=== PATIENT | male | born 1960 | race Two or more races ===

== ENCOUNTER 2018-01-18 18:33 | Emergency (ER) | payer SELFPAY ==
[~2018-01-18] VITALS: Ht 170.2 cm; Wt 81.6 kg
[2018-01-18 19:18] VITALS: BP 132/84
[2018-01-18 21:00] VITALS: BP 124/76
--- NOTE | 2018-01-18 22:31 | Emergency Room Report ---
History of Present Illness General Chief Complaint: Back Pain-No Injury Source: Patient Present Illness HPI 57-year-old male presents to the emergency department complaining of exacerbation of his chronic low back pain 2 days. Patient reports that when it is cold out this makes his pain exacerbated. Patient states that he typically uses a cane ambulate. Patient states that he's been drinking earlier today and thinks that this may have also treated to his symptoms. Patient states that earlier he felt slightly dizzy however he states that he no longer feels that way he denies headache, weakness, loss of consciousness, trauma or fall. Patient denies abdominal pain or tenderness. He denies neck pain. Denies numbness tingling or loss of sensation or gross motor movements of the extremities, incontinence of bowel or bladder. Denies CP, Palpitations, LOC, AMS , dizziness, Changes in Vision, weakness or a sudden severe headache. Pt. states he previously was rx'd Vicodin to manage his pain but he became addicted and needed to stop. pt. denies taking any medications today for his symptoms. Pt. is also reporting that he has not slept in 3 days and has been standing the whole time which cause his symptoms to become worse. Pt. states he is transitioning between housing at the moment. Allergies: Coded Allergies: No Known Allergies (Unverified , 01/18/18) Patient History Past Medical History: see triage record Past Surgical History: none Pertinent Family History: none Social History: Reports: alcohol use - beer and liquor. , drug use - opiate dependence and tolerance- in remission per pt. Reviewed Nursing Documentation: PMH: Agreed; PSxH: Agreed Nursing Documentation-PMH Past Medical History: No Stated History Review of Systems All Other Systems: negative except mentioned in HPI Physical Exam Vital Signs Date Time Temp Pulse Resp B/P (MAP) Pulse Ox O2 Delivery O2 Flow Rate FiO2 01/18/18 19:18 97.0 62 18 127/78 94 Room Air Sp02 EP Interpretation: reviewed, normal General Appearance: no apparent distress, alert, GCS 15, non-toxic Head: normocephalic, atraumatic Eyes: bilateral eye normal inspection, bilateral eye PERRL ENT: hearing grossly normal, normal voice Neck: full range of motion Respiratory: lungs clear, normal breath sounds, no respiratory distress, no wheezing, speaking full sentences Cardiovascular #1: regular rate, rhythm, no edema, normal capillary refill Cardiovascular #2: 2+ dorsalis pedis (R) - posterior tibialias bilaterally, 2+ dorsalis pedis (L) Gastrointestinal: normal bowel sounds, non tender, soft, non-distended, no guarding, no pulsatile mass Musculoskeletal: back normal, gait/station normal, normal range of motion, tender - TTP generalized throughout back paraspinal musculature and midline, no palpable step-offs, no obivous deformity. pt. ambulatory with a cane. Neurologic: alert, oriented x3, responsive, motor strength/tone normal, sensory intact, normal gait - with gait. , speech normal, other - Inebriated- strong odor of etoh on pt. breath durring PE. , grossly normal Psychiatric: judgement/insight normal Skin: normal color, no rash, warm/dry, well hydrated, other - no open wounds or abrasions. Medical Decision Making PA Attestation Dr. Sharma is my supervising physician whom pt. management has been discussed with. Diagnostic Impression: Primary Impression: Back pain Qualified Codes: M54.5 - Low back pain; G89.29 - Other chronic pain ER Course 57-year-old male presents to the emergency department complaining of exacerbation of his chronic low back pain 2 days. Patient reports that when it is cold out this makes his pain exacerbated. Patient states that he typically uses a cane ambulate. Patient states that he's been drinking earlier today and thinks that this may have also treated to his symptoms. Patient states that earlier he felt slightly dizzy however he states that he no longer feels that way he denies headache, weakness, loss of consciousness, trauma or fall. Patient denies abdominal pain or tenderness. He denies neck pain. Denies numbness tingling or loss of sensation or gross motor movements of the extremities, incontinence of bowel or bladder. Denies CP, Palpitations, LOC, AMS , dizziness, Changes in Vision, weakness or a sudden severe headache. Pt. states he previously was rx'd Vicodin to manage his pain but he became addicted and needed to stop. pt. denies taking any medications today for his symptoms. Pt. is also reporting that he has not slept in 3 days and has been standing the whole time which cause his symptoms to become worse. Pt. states he is transitioning between housing at the moment. Ddx considered: epidural abscess, fracture, sprain/strain, meningitis, spinal chord injury, sciatica, cauda equina, Pyelonephritis, renal calculi just to name a few. Vital signs reviewed and are WNL during ED visit. Pt. is afebrile with no signs of infection No new symptoms, and denies recent trauma. No saddle anesthesia noted, Pt. denies incontinence Neurovascular is intact ROM is limited due to pain pulses are equal bilaterally normal temperature palpation bilaterally. Mild Tenderness to palpation to paraspinal muscles of the lower back, upper back and some midline tenderness. *Pt. describes pain today as moderate and radiates across the lower back. ORDERS: Pt. declines imaging. He reports chronic pain. INTERVENTIONS: - patient declines pain medication he also declines Lidoderm patch. Patient repeatedly asks for a warm blanket and to lay on a gurney so he can rest. Will double times patient was caught in the bathroom smoking cigarettes and he was kindly asked to stop and refrain from smoking in the emergency department as there is oxygen nearby and this causes a significant risk to the department. Patient ultimately requests to leave because he does not have a bed. He attempted to walk out but he was encouraged to stay until clinically he is more sober. Pt. continues to want to leave and repeatedly smokes in the bathroom. He is refusing pain medication and evaluation still . DISCHARGE: At this time pt. is stable for d/c to home. Will provide printed patient care instructions, and any necessary prescriptions. Care plan and follow up instructions have been discussed with the patient prior to discharge. Last Vital Signs Date Time Temp Pulse Resp B/P (MAP) Pulse Ox O2 Delivery O2 Flow Rate FiO2 01/18/18 19:18 97.0 62 18 127/78 94 Room Air Disposition: HOME, SELF-CARE Condition: Stable Scripts No Active Prescriptions or Reported Meds Patient Instructions: Back Pain, Adult Humera Roa Jan 18, 2018 22:30
== END 2018-01-18 21:00 | disposition home or self-care (01) ==
LOC: EDBD 18:33 → EMR 19:42
DX: M54.5 Low back pain (principal); G89.29 Other chronic pain
CPT/HCPCS: 99283

== ENCOUNTER 2018-03-22 12:05 | Inpatient (IN) | payer MEDICAID ==
[~2018-03-22] VITALS: Ht 172.7 cm; Wt 78.5 kg
[~2018-03-22 12:05] MED LIST: NKM
[2018-03-22 12:12] VITALS: BP 97/51
[2018-03-22 13:07] LABS: BASOPHILS % (AUTO) 1.3 % (0.0-2.0); EOSINOPHILS % (AUTO) 4.1 % (0.0-3.0); HEMATOCRIT 37.3 % (42.0-52.0); HEMOGLOBIN 11.5 G/DL (14.2-18.0); LYMPHOCYTES % (AUTO) 45.3 % (20.0-45.0); MEAN CORPUSCULAR VOLUME 86 FL (80-99); MONOCYTES % (AUTO) 6.6 % (1.0-10.0); NEUTROPHILS % (AUTO) 42.7 % (45.0-75.0); PLATELET COUNT 377 K/UL (150-450); RED BLOOD COUNT 4.31 M/UL (4.70-6.10); WHITE BLOOD COUNT 6.2 K/UL (4.8-10.8)
[2018-03-22 13:14] LABS: ANION GAP 11 mmol/L (5-15); BLOOD UREA NITROGEN 6 mg/dL (7-18); CALCIUM 8.7 MG/DL (8.5-10.1); CARBON DIOXIDE 23 MMOL/L (21-32); CHLORIDE 110 MMOL/L (98-107); CREATININE 0.9 MG/DL (0.55-1.30); SODIUM 144 MMOL/L (136-145)
[2018-03-22 13:18] LABS: ALANINE AMINOTRANSFERASE 27 U/L (12-78); ALBUMIN 2.9 G/DL (3.4-5.0); ALBUMIN/GLOBULIN RATIO 0.5 (1.0-2.7); ALKALINE PHOSPHATASE 109 U/L (46-116); ASPARTATE AMINO TRANSFERASE 37 U/L (15-37); BILIRUBIN,TOTAL 0.2 MG/DL (0.2-1.0)
--- NOTE | 2018-03-22 13:26 | Emergency Room Report ---
History of Present Illness General Chief Complaint: Syncope Source: Patient Present Illness HPI 57-year-old male with no medical problems, but reports he drinks beer every day , is homeless, lives in [facility], report he passed out, he did report symptoms nonspecific vague chest pain, while eating here, otherwise has no complaints. He reports he was lightheaded for moment and passed out, does not feel like he hurt himself. Allergies: Coded Allergies: No Known Allergies (Unverified , 01/18/18) Patient History Past Medical History: see triage record Reviewed Nursing Documentation: PMH: Agreed; PSxH: Agreed Nursing Documentation-PMH Past Medical History: No History, Except For Hx Seizures: Yes Review of Systems All Other Systems: negative except mentioned in HPI Physical Exam Vital Signs Date Time Temp Pulse Resp B/P (MAP) Pulse Ox O2 Delivery O2 Flow Rate FiO2 03/22/18 11:58 98.4 86 16 103/71 98 Room Air 03/22/18 12:11 99 Sp02 EP Interpretation: reviewed, normal General Appearance: no apparent distress, alert, non-toxic Head: normocephalic Eyes: bilateral eye normal inspection, bilateral eye PERRL, bilateral eye EOMI ENT: normal ENT inspection, hearing grossly normal, normal pharynx, no angioedema, normal voice, moist mucus membranes Neck: normal inspection, full range of motion, supple, supple/symm/no masses Respiratory: chest non-tender, lungs clear, normal breath sounds, chest symmetrical, palpation of chest normal Cardiovascular #1: normal peripheral pulses, regular rate, rhythm Cardiovascular #2: 2+ radial (R), 2+ radial (L), 2+ dorsalis pedis (R), 2+ dorsalis pedis (L) Gastrointestinal: normal inspection, non tender, soft, no mass, no guarding, no rebound Rectal: deferred Genitourinary: normal inspection, no CVA tenderness Musculoskeletal: back normal, gait/station normal, normal range of motion, non- tender, no calf tenderness Neurologic: alert, responsive, battery assembler dry cell III-XII nml as tested, motor strength/tone normal, sensory intact, speech normal Psychiatric: judgement/insight normal, memory normal, mood/affect normal Skin: normal color, no rash, warm/dry, normal turgor Lymphatic: no adenopathy Medical Decision Making Homeless Attestation I, The treating physician Dr. Ragland, has assessed and agrees that patient is medically stable for discharge to an outpatient disposition. Diagnostic Impression: Primary Impression: Syncope ER Course Patient with no medical problems, has single episode, minimally prolonged QTC of 43, has been requesting sandwiches here the whole time, not having active chest pain, a 3 sandwiches requesting to be helped out with a place to go afterwards as he is homeless. Labs, EKG, CXR all normal. Pateint given 3 turkey sandwiches, warmed up per his request, will dc. EKG Diagnostic Results EKG Time: 13:23 EP Interpretation: no stemi Rate: normal Rhythm: NSR ST Segments: no acute changes ASA given to the pt in ED: No Chest X-Ray Diagnostic Results Chest X-Ray Diagnostic Results : Chest X-Ray Ordered: Yes # of Views/Limited/Complete: 1 View Indication: Other - syncope EP Interpretation: Yes Interpretation: no consolidation, no effusion, no pneumothorax, no acute cardiopulmonary disease Impression: No acute disease Electronically Signed by: Margot Ragland MD Last Vital Signs Date Time Temp Pulse Resp B/P (MAP) Pulse Ox O2 Delivery O2 Flow Rate FiO2 03/22/18 12:12 97.1 91 14 97/51 98 Room Air 03/22/18 12:11 99 Disposition: HOME, SELF-CARE Condition: Stable Referrals: NOT CHOSEN KRYSTAL/,REFERRING (PCP) MARGOT RAGLAND M.D Mar 22, 2018 13:26
[2018-03-22] MEDS ORDERED: Aspirin Baby 81mg ORAL ONE (13:45)
[2018-03-22] MEDS ORDERED: Nitroglycerin Subl 0.4mg tab SL PRN ×2 (13:45→14:15)
[2018-03-22 14:12] VITALS: BP 104/71
[2018-03-22] MEDS ORDERED: dilTIAZem HCl 25mg/5ml Inj IV PRN (14:15)
[2018-03-22] MEDS ORDERED: Enalaprilat 2.5mg/2ml Inj IV PRN (14:15)
[2018-03-22] MEDS ORDERED: Albuterol/Ipratropium 3ml neb HHN PRN (14:15)
[2018-03-22] MEDS ORDERED: Morphine Sulfate 4mg/ml Inj (IV/IM USE ONLY) IVP PRN (14:15)
[2018-03-22] MEDS ORDERED: Ketorolac 30mg Inj IV PRN (14:15)
[2018-03-22] MEDS ORDERED: Miralax 17gm pkt ORAL PRN (14:15)
[2018-03-22 16:21] VITALS: BP 115/75
--- NOTE | 2018-03-22 16:34 | Diagnostic Imaging Report ---
Indication: Shortness of breath Technique: One view of the chest Comparison: none Findings: The heart size is normal. There is a 1 cm irregular opacity at the left lung base. Lungs and pleural spaces are clear otherwise Impression: Irregular left basilar 1 cm opacity, quite possibly artifactual but small nodule also possible. Consider chest CT for further evaluation. Dr. Pantoja notified No acute process otherwise
[2018-03-22 17:20] VITALS: BP 131/85
[2018-03-22 17:45] VITALS: BP 123/77
[2018-03-22] MEDS ORDERED: Isovue-300 100ml vial INJ PRN (17:45)
[2018-03-22 20:00] VITALS: BP 135/85
[2018-03-22] MEDS: Heparin 5000 units/ml inj SUBQ SCH (21:00)
[2018-03-23] VITALS: BP 130/79
[2018-03-23 04:00] VITALS: BP 134/86
[2018-03-23 07:30] LABS: BASOPHILS % (AUTO) 1.4 % (0.0-2.0); EOSINOPHILS % (AUTO) 2.7 % (0.0-3.0); HEMATOCRIT 30.4 % (42.0-52.0); HEMOGLOBIN 9.6 G/DL (14.2-18.0); LYMPHOCYTES % (AUTO) 42.3 % (20.0-45.0); MEAN CORPUSCULAR VOLUME 84 FL (80-99); MONOCYTES % (AUTO) 5.7 % (1.0-10.0); NEUTROPHILS % (AUTO) 47.9 % (45.0-75.0); PLATELET COUNT 373 K/UL (150-450); RED CELL DISTRIBUTION WIDTH 20.5 % (11.6-14.8); WHITE BLOOD COUNT 9.8 K/UL (4.8-10.8)
[2018-03-23 07:50] LABS: INR 1.1 (0.9-1.1)
[2018-03-23 07:54] LABS: CHOLESTEROL 121 MG/DL (< 200); HDL CHOLESTEROL 35 MG/DL (40-60); TRIGLYCERIDES 66 MG/DL (30-150)
[2018-03-23 08:00] VITALS: BP 130/92
[2018-03-23] MEDS: Heparin 5000 units/ml inj SUBQ SCH (08:49)
[2018-03-23] MEDS ORDERED: Aspirin Baby 81mg ORAL SCH (09:00)
[2018-03-23] MEDS ORDERED: PROTONIX20 MG ORAL (11:28)
--- NOTE | 2018-03-23 11:43 | Consultation ---
History of Present Illness General Date patient seen: Mar 23, 2018 Chief Complaint: Syncope Present Illness HPI 57-year-old male with no medical problems, but reports he drinks beer every day , is homeless, report he passed out, he did report symptoms nonspecific vague chest pain, while eating here, otherwise has no complaints. He was going to be discharged but he started c/o chest pain. His CXR showed possible LLL nodule. He is admitted for further work up. Allergies: Coded Allergies: No Known Allergies (Unverified , 01/18/18) Medication History Scheduled No Known Medications* (NKM - No Known Medications*), 0 ., (Reported) Pantoprazole Sodium (Protonix), 20 MG ORAL DAILY Patient History Healthcare decision maker Resuscitation status Full Code Advanced Directive on File Past Medical/Surgical History Past Medical/Surgical History: (1) Homelessness Review of Systems All Other Systems: negative except mentioned in HPI Physical Exam General Appearance: WD/WN Lines, tubes and drains: peripheral HEENT: normocephalic, atraumatic Neck: non-tender, normal alignment Respiratory/Chest: chest wall non-tender, lungs clear Breasts: no masses Cardiovascular/Chest: normal peripheral pulses, normal rate Abdomen: normal bowel sounds, non tender Genitourinary/Rectal: normal genital exam Extremities: normal range of motion Skin Exam: normal pigmentation Neurologic: primary care provider II-XII grossly normal Last 24 Hour Vital Signs Date Time Temp Pulse Resp B/P (MAP) Pulse Ox O2 Delivery O2 Flow Rate FiO2 03/23/18 09:00 Room Air 03/23/18 08:00 99.5 90 16 130/92 (105) 97 03/23/18 04:00 98.4 89 18 134/86 (102) 99 03/23/18 04:00 91 03/23/18 00:00 106 03/23/18 00:00 99.6 107 18 130/79 (96) 97 03/22/18 21:00 Room Air 03/22/18 20:00 98.2 109 18 135/85 (102) 99 03/22/18 20:00 106 03/22/18 18:16 Room Air 03/22/18 17:45 98.4 95 23 123/77 (92) 98 03/22/18 17:20 97.5 98 20 131/85 99 Room Air 99 03/22/18 17:20 97.5 98 20 131/85 99 Room Air 03/22/18 16:21 97.7 101 18 115/75 100 Room Air 03/22/18 14:12 97.7 74 18 104/71 99 Room Air 03/22/18 12:12 97.1 91 14 97/51 98 Room Air 03/22/18 12:11 82 14 Room Air 99 03/22/18 11:58 98.4 86 16 103/71 98 Room Air Intake and Output 03/22/18 03/23/18 19:00 07:00 Intake Total 500 ml Output Total 0 ml 200 ml Balance 500 ml -200 ml Intake Oral 500 ml Output Urine Total 0 ml 200 ml # Voids 2 # Bowel Movements 2 Laboratory Tests Test 03/22/18 12:55 03/23/18 07:05 White Blood Count 6.2 K/UL (4.8-10.8) 9.8 K/UL (4.8-10.8) # Red Blood Count 4.31 M/UL (4.70-6.10) L 3.60 M/UL (4.70-6.10) L Hemoglobin 11.5 G/DL (14.2-18.0) L 9.6 G/DL (14.2-18.0) L Hematocrit 37.3 % (42.0-52.0) L 30.4 % (42.0-52.0) L Mean Corpuscular Volume 86 FL (80-99) 84 FL (80-99) Mean Corpuscular Hemoglobin 26.7 PG (27.0-31.0) L 26.7 PG (27.0-31.0) L Mean Corpuscular Hemoglobin Concent 30.9 G/DL (32.0-36.0) L 31.6 G/DL (32.0-36.0) L Red Cell Distribution Width 21.0 % (11.6-14.8) H 20.5 % (11.6-14.8) H Platelet Count 377 K/UL (150-450) 373 K/UL (150-450) Mean Platelet Volume 6.5 FL (6.5-10.1) 6.3 FL (6.5-10.1) L Neutrophils (%) (Auto) 42.7 % (45.0-75.0) L 47.9 % (45.0-75.0) Lymphocytes (%) (Auto) 45.3 % (20.0-45.0) H 42.3 % (20.0-45.0) Monocytes (%) (Auto) 6.6 % (1.0-10.0) 5.7 % (1.0-10.0) Eosinophils (%) (Auto) 4.1 % (0.0-3.0) H 2.7 % (0.0-3.0) Basophils (%) (Auto) 1.3 % (0.0-2.0) 1.4 % (0.0-2.0) Sodium Level 144 MMOL/L (136-145) Potassium Level 4.0 MMOL/L (3.5-5.1) Chloride Level 110 MMOL/L (98-107) H Carbon Dioxide Level 23 MMOL/L (21-32) Anion Gap 11 mmol/L (5-15) Blood Urea Nitrogen 6 mg/dL (7-18) L Creatinine 0.9 MG/DL (0.55-1.30) Estimat Glomerular Filtration Rate > 60 mL/min (>60) Glucose Level 83 MG/DL (74-106) Calcium Level 8.7 MG/DL (8.5-10.1) Total Bilirubin 0.2 MG/DL (0.2-1.0) Aspartate Amino Transf (AST/SGOT) 37 U/L (15-37) Alanine Aminotransferase (ALT/SGPT) 27 U/L (12-78) Alkaline Phosphatase 109 U/L (46-116) Troponin I 0.007 ng/mL (0.000-0.056) 0.012 ng/mL (0.000-0.056) Total Protein 8.4 G/DL (6.4-8.2) H Albumin 2.9 G/DL (3.4-5.0) L Globulin 5.5 g/dL Albumin/Globulin Ratio 0.5 (1.0-2.7) L Prothrombin Time 11.3 SEC (9.30-11.50) Prothromb Time International Ratio 1.1 (0.9-1.1) Activated Partial Thromboplast Time 29 SEC (23-33) C-Reactive Protein, Quantitative 0.9 mg/dL (0.00-0.90) Triglycerides Level 66 MG/DL (30-150) Cholesterol Level 121 MG/DL (< 200) LDL Cholesterol 80 mg/dL (<100) HDL Cholesterol 35 MG/DL (40-60) L Cholesterol/HDL Ratio 3.5 (3.3-4.4) Thyroid Stimulating Hormone (TSH) 1.098 uiU/mL (0.358-3.740) Height (Feet): 5 Height (Inches): 8.00 Weight (Pounds): 173 Medications Current Medications Medications (Trade) Dose Ordered Sig/Guido Route PRN Reason Start Time Stop Time Status Last Admin Dose Admin Acetaminophen (Tylenol) 650 mg Q4H PRN ORAL FEVER 03/22/18 14:15 04/21/18 14:14 Albuterol/ Ipratropium (Albuterol/ Ipratropium) 3 ml Q4H PRN HHN Shortness of Breath 03/22/18 14:15 03/27/18 14:14 Aspirin (ASA) 162 mg DAILY ORAL 03/23/18 09:00 04/22/18 08:59 03/23/18 08:48 Diltiazem HCl (Cardizem) 10 mg Q1H PRN IV heart rate more than 120, 03/22/18 14:15 04/21/18 14:14 Enalaprilat (Vasotec) 2.5 mg Q6H PRN IV sbp more than 160 03/22/18 14:15 04/21/18 14:14 Heparin Sodium (Porcine) (Heparin 5000 units/ml) 5,000 units EVERY 12 HOURS SUBQ 03/22/18 21:00 04/21/18 20:59 03/23/18 08:49 Iopamidol (Isovue-300 100ml) 100 ml NOW PRN INJ Radiology Procedure 03/22/18 17:45 03/24/18 17:32 Ketorolac Tromethamine (Toradol 30mg) 30 mg Q6H PRN IV moderate pain ( 4-6) 03/22/18 14:15 03/27/18 14:14 Morphine Sulfate (Morphine Sulfate) 2 mg Q4H PRN IVP severe Pain (Pain Scale 7-10) 03/22/18 14:15 03/29/18 14:14 Nitroglycerin (Ntg) 0.4 mg Q5M PRN SL Prn Chest Pain 03/22/18 13:45 04/21/18 13:44 Nitroglycerin (Ntg) 0.4 mg Q5M PRN SL Prn Chest Pain 03/22/18 14:15 04/21/18 14:14 Ondansetron HCl (Zofran) 4 mg Q6H PRN IVP Nausea & Vomiting 03/22/18 14:15 04/21/18 14:14 Polyethylene Glycol (Miralax) 17 gm DAILYPRN PRN ORAL Constipation 03/22/18 14:15 04/21/18 14:14 Temazepam (Restoril) 15 mg HSPRN PRN ORAL Insomnia 03/22/18 14:15 03/29/18 14:14 03/22/18 21:39 Assessment/Plan Problem List: (1) Costochondritis ICD Codes: M94.0 - Chondrocostal junction syndrome [Tietze] SNOMED: 09264302 (2) Homelessness ICD Codes: Z59.0 - Homelessness SNOMED: 65471691 Assessment/Plan symptomatic treatment US of abdomen dc planning if US negative. Joe Dueñas MD Mar 23, 2018 11:43
--- NOTE | 2018-03-23 11:59 | Diagnostic Imaging Report ---
Clinical Indication: Evaluation of abnormal chest radiograph Technique: IV administration nonionic contrast. Spiral acquisition obtained through the chest. Multiplanar reconstructions generated. Total dose length product 712.34 mGycm. CTDIvol(s) 18.33 mGy. Dose reduction achieved using automated exposure control Comparison: Reference made to chest radiograph 03/22/2018 Findings: Compressive atelectatic changes are seen posteriorly at the left lung base. No parenchymal abnormality seen that would explain the findings on recent chest radiograph. Most likely, that finding represented a nipple shadow. There is possibly some chronic scarring in the left posterior costophrenic sulcus. Posterior dependent atelectatic changes or chronic scarring are seen in the right lung. Multiple small subpleural blebs are also seen in this area. No definite infiltrates, masses, or nodules are demonstrated. The heart is borderline enlarged. No pericardial effusion. No mediastinal or hilar mass or adenopathy. Unremarkable esophagus. The included portion of the thyroid is unremarkable. No axillary or chest wall mass or adenopathy. The bones demonstrate a partially healed fracture deformity of the anterolateral right fifth rib. No other osseous abnormality demonstrated. The included upper abdominal anatomy demonstrates low-attenuation of the liver, consistent with fatty change. Ill-defined dense material is seen in the region of the gallbladder neck, could represent small stones layering in the neck. The gallbladder is nondistended, however. The remainder of the upper abdominal anatomy is unremarkable. Impression: No findings are demonstrated corresponding to the suspected nodule at the left lung base seen on recent chest radiograph. That finding was likely an artifact of confluent overlapping shadows or could have been a nipple shadow Bilateral dependent pulmonary parenchymal atelectasis. Evidence of small blebs within the atelectatic portions of the posterior right lower lobe may indicate a component of chronic scarring in this area No acute pulmonary process otherwise Borderline cardiomegaly Partially healed fracture deformity of the anterolateral right fifth rib Fatty liver Possible small gallstones in the gallbladder neck incidentally noted The CT scanner at [facility] is accredited by the [employer] and the scans are performed using protocols designed to limit radiation exposure to as low as reasonably achievable to attain images of sufficient resolution adequate for diagnostic evaluation.
--- NOTE | 2018-03-23 15:46 | Diagnostic Imaging Report ---
Indication: Abdominal pain, right upper quadrant pain, abdominal distention Technique: Shipley-scale and duplex images of the upper abdomen were obtained. Doppler interrogation of the pancreatic and hepatic vessels Comparison: none Findings: Gallbladder is nondistended. Patient was not NPO for the exam there is no gallbladder wall thickening. No pericholecystic fluid. No definite gallstones. Sonographic Bahena's sign is negative. Common bile duct measures 3 mm in diameter. No intrahepatic biliary ductal dilatation. Liver demonstrates diffusely increased echogenicity, consistent with diffuse hepatocellular disease, most likely fatty change. Portal vein and hepatic veins are patent. Pancreas is unremarkable. Spleen is unremarkable. Left kidney measures 11.2 cm in length. Right kidney measures 10.7 cm length. Both kidneys demonstrate normal echogenicity. There is no hydronephrosis. No focal abnormality. There is probably a duplicated right renal collecting system . Abdominal aorta is partially obscured by bowel gas, visualized portions are non-aneurysmal . Impression: Partially contracted gallbladder. No definite gallstones or secondary signs of acute cholecystitis Negative for dilated bile ducts Note inability to optimally visualize the abdominal aorta Liver demonstrates diffusely increased echogenicity, consistent with diffuse hepatocellular disease, most likely fatty change.
--- NOTE | 2018-03-25 11:42 | Discharge Summary ---
Discharge Summary Discharge Summary _ DATE OF ADMISSION: 03/22/2018 DATE OF DISCHARGE: 02/2018 DISCHARGED BY: Dr. Ellington REASON FOR ADMISSION: 57 years old male with no significant past medical history , presented with reports of nonspecific vague chest pain while eating , otherwise no complaints. Patient drinks beer every day. Upon evaluation vital signs were stable. Laboratory workup revealed no leukocytosis, mild anemia with hemoglobin 11.5 , hematocrit 37.3; electrolytes and renal parameters were stable. Troponin negative . EKG revealed sinus rhythm, no acute ischemic changes Chest x-ray revealed no acute cardiopulmonary pathology, but noted irregular left base 1 cm opacity , quite possibly artifactual, but small nodule also possible. Patient was admitted to telemetry floor for further management CONSULTANTS: pulmonary Dr. Dueñas [facility] COURSE: Patient admitted to telemetry floor. Patient started on antiplatelet therapy with aspirin. Serial troponin were negative. EKG revealed no acute ischemic changes. Patient was ruled out for acute [place]. Lipid panel was stable. TSH was within normal limits. Nitroglycerin was on board as needed. Pain management was addressed, and pain was controlled. Patient started on DVT prophylaxis. Bowel regimen instituted. Abdominal ultrasound revealed no gallstones, no acute cholecystitis. No evidence of dilated bile ducts. CT of the chest was done due to finding on x-ray . CT scan demonstrated no findings, corresponding to the suspected nodule at the left lung base, likely artifact. Bilateral dependent pulmonary parenchymal atelectasis noted. Evidence of small blebs within the atelectatic portion of the posterior right lower lobe, possibly indicative of component of chronic scaring condition. No acute pulmonary process otherwise. Borderline cardiomegaly. Fatty liver. Chest pain resolved, was likely due to costochondritis. Pulse oximetry was stable on room air. Patient was stable for discharge home. Due to rapid and unexpected improvement in patient condition, patient was discharged in 1 day. FINAL DIAGNOSES: Costochondritis Homelessness DISCHARGE MEDICATIONS: See Medication Reconciliation list. DISCHARGE INSTRUCTIONS: Patient was discharged. Follow-up with primary care provider. Patient was counseled on abstinence from alcohol. Return to ED precautions reviewed with patient. I have been assigned to dictate discharge summary for this account. I was not involved in the patient's management. Olivia Brown NP Mar 25, 2018 11:42
== END 2018-03-23 15:30 | disposition home or self-care (01) | DRG 203 ==
LOC: EDBD 12:05 → EMR 13:00 → CANBEDREQ 13:19 → 2E 14:22 → EDBEDREQ 16:58
DX: M94.0 Chondrocostal junction syndrome [Tietze] (principal); Z59.0 Homelessness
CPT/HCPCS: 36415; 71045; 71260; 76700; 80053; 80061; 84443; 84484; 85025; 85610; 85730; 86140; 87081; 93005; 93306; 99285

== ENCOUNTER 2018-04-23 22:02 | Emergency (ER) | payer SELFPAY ==
[~2018-04-23] VITALS: Ht 172.7 cm; Wt 81.6 kg
[~2018-04-23 22:02] MED LIST changes: +PROTONIX20 MG ORAL
[2018-04-23 23:13] VITALS: BP 126/78
[2018-04-24] MEDS ORDERED: Cephalexin 500mg cap ORAL ONE (05:00)
[2018-04-24] MEDS ORDERED: Bactrim-DS 1 tab ORAL ONE (05:00)
--- NOTE | 2018-04-24 05:01 | Emergency Room Report ---
History of Present Illness General Chief Complaint: Pain Source: Patient Present Illness HPI 57-year-old male presents to ED for evaluation. Patient states that he is experiencing right foot pain for the last 2 days. States that his foot is infected. Pain is throbbing, 10 out of 10, nonradiating. Patient also complaining of cough and congestive symptoms. Denies fevers or chills. Denies sick contacts or recent travel. No other aggravating relieving factors. Denies any other associated symptoms Allergies: Coded Allergies: No Known Allergies (Unverified , 01/18/18) Patient History Past Medical History: seizures Past Surgical History: none Pertinent Family History: none Social History: Denies: smoking, alcohol use, drug use Immunizations: UTD Reviewed Nursing Documentation: PMH: Agreed; PSxH: Agreed Nursing Documentation-PMH Hx Cardiac Problems: Yes Hx Cancer: No Hx Gastrointestinal Problems: No Hx Neurological Problems: Yes Hx Seizures: Yes Hx Syncope: Yes Review of Systems All Other Systems: negative except mentioned in HPI Physical Exam Vital Signs Date Time Temp Pulse Resp B/P (MAP) Pulse Ox O2 Delivery O2 Flow Rate FiO2 04/23/18 22:19 97.5 80 16 116/74 94 Room Air Sp02 EP Interpretation: reviewed, normal General Appearance: no apparent distress, alert, GCS 15, non-toxic Head: normocephalic Eyes: bilateral eye normal inspection, bilateral eye PERRL ENT: hearing grossly normal, normal pharynx, no angioedema, normal voice Neck: full range of motion, supple/symm/no masses Respiratory: chest non-tender, lungs clear, normal breath sounds, speaking full sentences Cardiovascular #1: regular rate, rhythm, no edema Gastrointestinal: normal bowel sounds, non tender, soft, non-distended, no guarding, no rebound Rectal: deferred Genitourinary: no CVA tenderness Musculoskeletal: swelling - R foot. macerated skin. indurated. erythematous. Neurologic: alert, oriented x3, responsive, motor strength/tone normal, sensory intact, speech normal Psychiatric: normal inspection Skin: other - induration R foot Lymphatic: normal inspection Medical Decision Making Homeless Attestation I, The treating physician Dr. Pantoja, has assessed and agrees that patient is medically stable for discharge to an outpatient disposition. Diagnostic Impression: Primary Impression: Upper respiratory infection Qualified Codes: J06.9 - Acute upper respiratory infection, unspecified Additional Impression: Cellulitis of right foot ER Course Hospital Course 57 yo M presents with cough and congestion, R foot pain Differential diagnoses include: Cellulitis, dermatitis, insect bite, abscess Clinical course Patient placed on stretcher. After initial history, physical exam reveals a middle aged male in no acute distress. On exam lungs are clear. Heart sounds normal. EKGnormal sinus rhythm no acute ischemic changes interpreted by me Chest x-rayno infiltrate or consolidation On exam of foot appears to be macerated skin with surrounding erythema and induration. Consistent with a fungal infection with bacterial superinfection. Patient afebrile, nontoxic appearing. Discussed findings with patient. Given Keflex and Bactrim in ED. Dressing applied. We'll discharge with Keflex and Bactrim and Lotrimin. Homeless discharged was completed. We'll also provide PMD referrals. Safe for discharge close outpatient follow-up Diagnosis - upper respiratory infection, cellulitis of R foot stable and discharged to home with prescription for bactrim, lotrimin, Keflex. Instructed to followup with PMD. Instructed return to ED if symptoms recur or worsen EKG Diagnostic Results Rate: normal Rhythm: NSR ST Segments: no acute changes ASA given to the pt in ED: No Rhythm Strip Diag. Results EP Interpretation: yes Rhythm: NSR, no PVC's, no ectopy Chest X-Ray Diagnostic Results Chest X-Ray Diagnostic Results : Chest X-Ray Ordered: Yes # of Views/Limited/Complete: 1 View Indication: Chest Pain EP Interpretation: Yes Interpretation: no consolidation, no effusion, no pneumothorax Impression: No acute disease Electronically Signed by: Electronically signed by Kojo Pantoja MD Last Vital Signs Date Time Temp Pulse Resp B/P (MAP) Pulse Ox O2 Delivery O2 Flow Rate FiO2 04/23/18 23:13 98.0 87 18 126/78 95 Room Air Status: improved Disposition: HOME, SELF-CARE Condition: Stable Scripts Clotrimazole* (LOTRIMIN*) 15 Gm Cream..g. 1 APPLIC TOPIC TWICE A DAY, #15 GM Prov: Kojo Pantoja MD 04/24/18 Acetaminophen With Codeine (T#3) (TYLENOL #3 TAB*) Y Tab 1 TAB ORAL Q8H PRN for For Pain for 3 Days, TAB Prov: Kojo Pantoja MD 04/24/18 Trimethoprim/Sulfamethoxazole 160/800* (BACTRIM DS TABLET*) 1 Each Tablet 1 TAB ORAL Q12H, #14 TAB 0 Refills Prov: Kojo Pantoja MD 04/24/18 Cephalexin* (KEFLEX*) 500 Mg Capsule 500 MG ORAL EVERY 6 HOURS for 7 Days, CAP Prov: Kojo Pantoja MD 04/24/18 Referrals: NOT CHOSEN IPA/,REFERRING (PCP) Kojo Pantoja MD Apr 24, 2018 05:01
[2018-04-24] MEDS ORDERED: ACETAMINOPHEN-1 EAC1 ORAL (05:34)
[2018-04-24] MEDS ORDERED: CLOTRIMAZOLE15 GM TOPIC (05:34)
[2018-04-24] MEDS ORDERED: CEPHALEXIN500 MG ORAL (05:34)
[2018-04-24] MEDS ORDERED: BACTRIM DS TAB1 EAC1 ORAL (05:34)
[2018-04-24 06:00] VITALS: BP 118/68
[2018-04-24 06:10] VITALS: BP 118/68
--- NOTE | 2018-04-24 11:33 | Diagnostic Imaging Report ---
Indication: Shortness of breath Technique: One view of the chest Comparison: 03/22/2018 Findings: The heart is upper limits of normal in size. No acute infiltrates, effusions, or congestion. No significant interim change Impression: No acute process
--- NOTE | 2018-04-24 13:23 | Cardiology Report ---
APPROVED REPORT EKG Measurement Heart [id number] Normal sinus rhythm Normal ECG
== END 2018-04-24 06:24 | disposition home or self-care (01) ==
LOC: EDBD 22:02 → EMR 23:04
DX: J06.9 Acute upper respiratory infection, unspecified (principal); L03.115 Cellulitis of right lower limb
CPT/HCPCS: 71045; 93005; 99283